=== PATIENT | male | born 1965 | race American Indian/Alaskan Native ===

== ENCOUNTER 2018-05-31 13:00 | Outpatient (CLI) | payer BC ==
--- NOTE | 2018-05-31 13:34 | XRay Report ---
XRAY CHEST TWO VIEWS: 05/31/18 13:00:00 CLINICAL: Cough.Post viral call syndrome. COMPARISON: None FINDINGS: Normal heart and pulmonary vasculature. The lungs are normally expanded and clear.No airspace disease or pleural effusion. No mass or lymphadenopathy. The bones and soft tissues are normal. IMPRESSION: Normal chest.
== END 2018-05-31 13:01 | disposition home or self-care (01) ==
LOC: SPVIMAG 13:00
PROVIDERS: ATTEND Internal Medicine
DX: R05 Cough (principal)
CPT/HCPCS: 71046